=== PATIENT | male | born 1995 | race Caucasian/White ===

== ENCOUNTER → 2020-12-28 15:45 | Outpatient (BNVA) | payer OTHER, SELFPAY | PROVIDERS: Visit Provider Nurse Practitioner Family | DX: Z20.828 Contact with and (suspected) exposure to other viral communicable diseases (principal) | CPT/HCPCS: 87635 ==

== ENCOUNTER → 2023-03-07 15:39 | Outpatient (BNVA) | payer OTHER, SELFPAY | PROVIDERS: PCP Family Medicine Adult Medicine; Visit Provider Family Medicine Adult Medicine | DX: E66.01 Morbid (severe) obesity due to excess calories (principal); Z68.42 Body mass index [BMI] 45.0-49.9, adult; K58.9 Irritable bowel syndrome, unspecified; Z86.39 Personal history of other endocrine, nutritional and metabolic disease; Z31.69 Encounter for other general counseling and advice on procreation | CPT/HCPCS: 80053; 83036; 84443; 85025 ==